=== PATIENT | female | born 1955 | race Caucasian/White ===

== ENCOUNTER 2022-08-16 13:01 | Emergency (ER) | payer MEDICARE, SELFPAY ==
[2022-08-16] VITALS (18 sets, daily range): BP systolic 142–168; BP diastolic 66–97; PULSE 52–61; RESP 18; TEMP 36.6–37.2; O2SAT 94–99; BMI 22.2
[2022-08-16 13:33] LABS: Add Manual Diff / Slide Review NO; Basophils Absolute Auto 100 /uL (0-100); Basophils Percent Auto 1.5 % (0-2); Eosinophils Absolute Auto 200 /uL (0-450); Eosinophils Percent Auto 2.4 % (2-4); Hematocrit 40.7 % (36-46); Hemoglobin 13.6 g/dL (12.0-16.0); Lymphocytes Absolute Auto 1700 /uL (1100-4500); Lymphocytes Percent Auto 26.8 % (25-40); Mean Corpuscular HGB Conc 33.3 % (30-36); Mean Corpuscular Hemoglobin 30.5 PG (26-34); Mean Corpuscular Volume 91.5 fL (80-100); Monocytes Absolute Auto 600 /uL (0-900); Monocytes Percent Auto 9.7 % (3-14); Neutrophils Absolute Auto 3800 /uL (1500-7000); Neutrophils Percent Auto 59.6 % (50-75); Platelet Count 303 X10^3/uL (150-400); Red Blood Cell Count 4.45 X10^6/uL (4.0-5.2); Red Cell Distribution Width 12.6 % (11.6-14.8); White Blood Cell Count 6.4 X10^3/uL (4.5-11.0)
[2022-08-16 13:46] LABS: Alanine Aminotransferase 37 IU/L (<35); Albumin 4.7 g/dL (3.5-5.0); Albumin Globulin Ratio 1.4 (1.0-2.8); Alkaline Phosphatase 71 U/L (38-126); Aspartate Aminotransferase 36 IU/L (14-36); BUN Creatinine Ratio 19.2 (6-22); Bilirubin Total 0.8 mg/dL (0.2-1.3); Blood Urea Nitrogen 10 mg/dL (7-17); Calcium 9.9 mg/dL (8.4-10.2); Carbon Dioxide 34 mmol/L (22-32); Chloride 98 mmol/L (98-107); Estimated Glomerular Filt Rate > 60 mL/min (>60); Globulin 3.4 g/dL (1.7-4.1); Glucose 105 mg/dL (80-110); HEMOLYSIS < 15 (0-50); Lipase 183 U/L (23-300); Sodium 136 mmol/L (137-145); Total Protein 8.1 g/dL (6.3-8.2)
--- NOTE | 2022-08-16 14:58 | ED.ABDPAIN ---
HPI - Abdominal Pain <Sophie Chamorro PA-C - Last Filed: 08/16/22 17:36> General Chief Complaint: Abdominal Pain Stated Complaint: Lower abd pain, being treated for UTI Time Seen by Provider: 08/16/22 14:35 Source: patient Mode of arrival: Ambulatory History of Present Illness HPI narrative: 67-year-old female with past medical history atrial fibrillation, hyperlipidemia presents to the ED with 1 week of abdominal pain. Patient states that her pain started in the suprapubic and lower abdomen last week, she called her PCP thinking she had a UTI, was prescribed a round of antibiotics. Patient states the antibiotics improved her symptoms, however as soon as she completed the course, her abdominal pain worsened. Patient was started on a 2nd course of antibiotics, this time cefdinir yesterday. Patient states that last night her symptoms worsened, her abdominal pain no spends her entire abdomen. Patient endorses some nausea, no vomiting. Patient denies fever, chills, chest pain, shortness of breath, dysuria, flank pain, lightheadedness, dizziness, syncope. Patient is on Eliquis for the AFib. Patient also takes atorvastatin for the hyperlipidemia. Patient had surgery for an ectopic in the past, no other abdominal surgeries. Patient's last bowel movement was this morning, she states she felt more constipated. Denies hematochezia, melena Related Data Home Medications Medication Instructions Recorded Confirmed apixaban 5 mg tablet (Eliquis) 5 mg PO BID 08/16/22 08/16/22 atorvastatin 80 mg tablet 80 mg PO QPM 08/16/22 08/16/22 cefdinir 300 mg capsule 300 mg PO BID 08/16/22 08/16/22 metoprolol succinate 25 mg 25 mg PO DAILY 08/16/22 08/16/22 tablet,extended release 24 hr Allergies Allergy/AdvReac Type Severity Reaction Status Date / Time chlorhexidine Allergy Rash Verified 08/16/22 13:49 codeine Allergy Rash Verified 08/16/22 13:49 sulfamethoxazole Allergy Rash Verified 08/16/22 13:49 [From Bactrim] trimethoprim [From Bactrim] Allergy Rash Verified 08/16/22 13:49 amoxicillin AdvReac Diarrhea Verified 08/16/22 15:30 aspirin AdvReac Gastrointestinal Verified 08/16/22 15:30 Upset clavulanic acid AdvReac Diarrhea Verified 08/16/22 15:30 [From Augmentin] diclofenac AdvReac Anxiety Verified 08/16/22 15:30 erythromycin base AdvReac Nausea Verified 08/16/22 15:30 Review of Systems <Sophie Chamorro PA-C - Last Filed: 08/16/22 17:36> Review of Systems ROS Unobtainable: All systems reviewed & are unremarkable except as noted in HPI and below Constitutional Constitutional: Denies chills, Denies fatigue, Denies fever(s), Denies frequent falls, Denies lethargy and Denies weakness Eyes Eyes: Denies change in vision, Denies eye discharge, Denies irritation and Denies loss of vision ENT Ears, Nose, Mouth, and Throat: Denies change in voice, Denies dizziness, Denies neck pain, Denies sore throat and Denies throat swelling Cardiovascular Cardiovascular: Denies chest pain, Denies irregular heart rhythm, Denies lightheadedness, Denies palpitations, Denies dyspnea, Denies dyspnea on exertion and Denies orthopnea Respiratory Respiratory: Denies cough, Denies dyspnea, Denies dyspnea on exertion and Denies wheezing Gastrointestinal Gastrointestinal: Reports abdominal pain, Denies change in bowel habits, Denies diarrhea, Reports nausea and Denies vomiting Genitourinary Genitourinary: Denies hematuria, Denies flank pain, Denies urinary incontinence and Denies urinary urgency Musculoskeletal Musculoskeletal: Denies back pain, Denies muscle weakness, Denies neck pain, Denies numbness and Denies tingling Integumentary/Breasts Skin/Breast: Denies pruritus, Denies erythema, Denies rash and Denies wounds Neurologic Neurologic: Denies behavioral changes, Denies confusion, Denies dizziness, Denies frequent falls, Denies loss of vision, Denies numbness, Denies tingling and Denies weakness Psychiatric Psychiatric: Denies anxiety, Denies behavioral changes, Denies confusion, Denies depression, Denies homicidal ideation and Denies suicidal ideation Endocrine Endocrine: Denies fatigue, Denies flushing and Denies palpitations Hematologic/Lymphatic Hematologic/Lymphatic: Denies easy bruising Allergic/Immunologic Allergic/Immunologic: Denies urticaria, Denies throat swelling and Denies wheezing Patient History <Sophie Chamorro PA-C - Last Filed: 08/16/22 17:36> Social History Smoking Status: Never smoker Smoking Status: Never smoker alcohol intake frequency: 0-2 drinks per day Substance Use Type: marijuana Exam <Sophie Chamorro PA-C - Last Filed: 08/16/22 17:36> Narrative Exam Narrative: Const General:?cooperative, healthy appearing and comfortable HENWV Head:?normal to inspection Ears:?hearing grossly normal bilaterally Nose:?external nose normal Face and sinus:?normal facial exam and sinuses nontender Mouth:?oral mucosae normal Throat:?posterior oropharynx normal Eyes General:?appearance normal, both eyes and all related structures Neck Neck:?normal visual inspection and no lymphadenopathy noted Resp Effort & Inspection:?normal respiratory effort Auscultation:?clear to auscultation bilaterally Cardio Rate:?regular rate Rhythm:?regular rhythm GI Abdomen is soft, nondistended, there is generalized tenderness to palpation. No CVA tenderness. Neuro General:?patient alert, patient awake and patient oriented x3 Initial Vital Signs Initial Vital Signs: Vital Signs Temperature 98.9 F 08/16/22 13:07 Pulse Rate 58 L 08/16/22 13:07 Respiratory Rate 18 08/16/22 13:07 Blood Pressure 167/74 H 08/16/22 13:07 Pulse Oximetry 98 08/16/22 13:07 Oxygen Delivery Method Room Air 08/16/22 13:07 <Garcia Altman DO - Last Filed: 08/16/22 18:00> Initial Vital Signs Initial Vital Signs: Vital Signs Temperature 98.9 F 08/16/22 13:07 Pulse Rate 58 L 08/16/22 13:07 Respiratory Rate 18 08/16/22 13:07 Blood Pressure 167/74 H 08/16/22 13:07 Pulse Oximetry 98 08/16/22 13:07 Oxygen Delivery Method Room Air 08/16/22 13:07 Course <Sophie Chamorro PA-C - Last Filed: 08/16/22 17:36> Orders Ordered: ED Orders 08/16/22 13:19 Complete Blood Count AUTO DIFF Stat Comprehensive Metabolic Panel Stat Lipase Stat 08/16/22 15:27 CT abdomen pelvis w con Stat Discontinued Medications Ketorolac Tromethamine (Ketorolac 30 Mg/Ml Vial) 15 mg IV NOW ONE Stop: 08/16/22 15:27 Last Admin: 08/16/22 15:40 Dose: 15 mg Documented By: RB Ondansetron HCl (Ondansetron 4 Mg Odt) 4 mg PO NOW PRN PRN Reason: Nausea And Vomiting Ondansetron HCl (Ondansetron 4 Mg/2 Ml Inj) 4 mg IV NOW PRN PRN Reason: Nausea And Vomiting Last Admin: 08/16/22 15:40 Dose: 4 mg Documented By: RB Vital Signs Vital signs: Vital Signs - 8 hr 08/16/22 13:07 08/16/22 14:23 08/16/22 14:25 Temperature 98.9 F Pulse Rate 58 L 61 Respiratory Rate 18 Blood Pressure 167/74 H 167/86 H Pulse Oximetry 98 96 Oxygen Delivery Method Room Air 08/16/22 14:25 08/16/22 14:30 08/16/22 14:30 Temperature Pulse Rate 57 L 56 L Respiratory Rate Blood Pressure 150/80 H Pulse Oximetry 95 94 Oxygen Delivery Method 08/16/22 14:37 08/16/22 14:37 08/16/22 14:45 Temperature Pulse Rate 58 L Respiratory Rate Blood Pressure 149/70 H 146/66 H Pulse Oximetry 99 Oxygen Delivery Method 08/16/22 14:45 08/16/22 15:00 08/16/22 15:00 Temperature Pulse Rate 52 L 53 L Respiratory Rate Blood Pressure 151/73 H Pulse Oximetry 98 99 Oxygen Delivery Method 08/16/22 15:15 08/16/22 15:15 08/16/22 15:30 Temperature Pulse Rate 55 L 59 L Respiratory Rate Blood Pressure 142/70 H Pulse Oximetry 98 98 Oxygen Delivery Method 08/16/22 16:00 08/16/22 17:27 08/16/22 16:30 Temperature 97.9 F Pulse Rate 58 L 54 L Respiratory Rate Blood Pressure Pulse Oximetry 99 98 Oxygen Delivery Method 08/16/22 16:42 08/16/22 16:42 08/16/22 16:45 Temperature Pulse Rate 54 L Respiratory Rate Blood Pressure 154/73 H 157/72 H Pulse Oximetry 99 Oxygen Delivery Method 08/16/22 16:45 08/16/22 17:00 08/16/22 17:00 Temperature Pulse Rate 54 L 55 L Respiratory Rate Blood Pressure 157/97 H Pulse Oximetry 99 97 Oxygen Delivery Method 08/16/22 17:15 08/16/22 17:15 08/16/22 17:24 Temperature Pulse Rate 55 L Respiratory Rate Blood Pressure 143/71 H Pulse Oximetry 98 94 Oxygen Delivery Method 08/16/22 17:25 Temperature Pulse Rate Respiratory Rate Blood Pressure 168/71 H Pulse Oximetry Oxygen Delivery Method <Garcia Altman DO - Last Filed: 08/16/22 18:00> Orders Ordered: ED Orders 08/16/22 13:19 Complete Blood Count AUTO DIFF Stat Comprehensive Metabolic Panel Stat Lipase Stat 08/16/22 15:27 CT abdomen pelvis w con Stat Discontinued Medications Ketorolac Tromethamine (Ketorolac 30 Mg/Ml Vial) 15 mg IV NOW ONE Stop: 08/16/22 15:27 Last Admin: 08/16/22 15:40 Dose: 15 mg Documented By: RUBIO Ondansetron HCl (Ondansetron 4 Mg Odt) 4 mg PO NOW PRN PRN Reason: Nausea And Vomiting Ondansetron HCl (Ondansetron 4 Mg/2 Ml Inj) 4 mg IV NOW PRN PRN Reason: Nausea And Vomiting Last Admin: 08/16/22 15:40 Dose: 4 mg Documented By: RUBIO Vital Signs Vital signs: Vital Signs - 8 hr 08/16/22 13:07 08/16/22 14:23 08/16/22 14:25 Temperature 98.9 F Pulse Rate 58 L 61 Respiratory Rate 18 Blood Pressure 167/74 H 167/86 H Pulse Oximetry 98 96 Oxygen Delivery Method Room Air 08/16/22 14:25 08/16/22 14:30 08/16/22 14:30 Temperature Pulse Rate 57 L 56 L Respiratory Rate Blood Pressure 150/80 H Pulse Oximetry 95 94 Oxygen Delivery Method 08/16/22 14:37 08/16/22 14:37 08/16/22 14:45 Temperature Pulse Rate 58 L Respiratory Rate Blood Pressure 149/70 H 146/66 H Pulse Oximetry 99 Oxygen Delivery Method 08/16/22 14:45 08/16/22 15:00 08/16/22 15:00 Temperature Pulse Rate 52 L 53 L Respiratory Rate Blood Pressure 151/73 H Pulse Oximetry 98 99 Oxygen Delivery Method 08/16/22 15:15 08/16/22 15:15 08/16/22 15:30 Temperature Pulse Rate 55 L 59 L Respiratory Rate Blood Pressure 142/70 H Pulse Oximetry 98 98 Oxygen Delivery Method 08/16/22 16:00 08/16/22 17:27 08/16/22 16:30 Temperature 97.9 F Pulse Rate 58 L 54 L Respiratory Rate Blood Pressure Pulse Oximetry 99 98 Oxygen Delivery Method 08/16/22 16:42 08/16/22 16:42 08/16/22 16:45 Temperature Pulse Rate 54 L Respiratory Rate Blood Pressure 154/73 H 157/72 H Pulse Oximetry 99 Oxygen Delivery Method 08/16/22 16:45 08/16/22 17:00 08/16/22 17:00 Temperature Pulse Rate 54 L 55 L Respiratory Rate Blood Pressure 157/97 H Pulse Oximetry 99 97 Oxygen Delivery Method 08/16/22 17:15 08/16/22 17:15 08/16/22 17:24 Temperature Pulse Rate 55 L Respiratory Rate Blood Pressure 143/71 H Pulse Oximetry 98 94 Oxygen Delivery Method 08/16/22 17:25 Temperature Pulse Rate Respiratory Rate Blood Pressure 168/71 H Pulse Oximetry Oxygen Delivery Method MDM - Abdominal Pain <Chasea BARBARA Chamorro - Last Filed: 08/16/22 17:36> Lab Data 08/16/22 13:19 08/16/22 13:19 Labs: Lab Results 08/16/22 08/16/22 Range/Units 13:19 13:19 WBC 6.4 (4.5-11.0) X10^3/uL RBC 4.45 (4.0-5.2) X10^6/uL Hgb 13.6 (12.0-16.0) g/dL Hct 40.7 (36-46) % MCV 91.5 (80-100) fL MCH 30.5 (26-34) PG MCHC 33.3 (30-36) % RDW 12.6 (11.6-14.8) % Plt Count 303 (150-400) X10^3/uL Neut % (Auto) 59.6 (50-75) % Lymph % (Auto) 26.8 (25-40) % [place] % (Auto) 9.7 (3-14) % Eos % (Auto) 2.4 (2-4) % Baso % (Auto) 1.5 (0-2) % Neut # (Auto) 3800 (8279-4678) /uL Lymph # (Auto) 1700 (0558-2279) /uL [place] # (Auto) 600 (0-900) /uL Eos # (Auto) 200 (0-450) /uL Baso # (Auto) 100 (0-100) /uL Sodium 136 L (137-145) mmol/L Potassium 4.0 (3.4-5.1) mmol/L Chloride 98 (98-107) mmol/L Carbon Dioxide 34 H (22-32) mmol/L BUN 10 (7-17) mg/dL Creatinine 0.52 (0.52-1.04) mg/dL Estimated GFR > 60 (>60) mL/min BUN/Creatinine Ratio 19.2 (6-22) Glucose 105 (80-110) mg/dL Calcium 9.9 (8.4-10.2) mg/dL Total Bilirubin 0.8 (0.2-1.3) mg/dL AST 36 (14-36) IU/L ALT 37 H (<35) IU/L Alkaline Phosphatase 71 (38-126) U/L Total Protein 8.1 (6.3-8.2) g/dL Albumin 4.7 (3.5-5.0) g/dL Globulin 3.4 (1.7-4.1) g/dL Albumin/Globulin Ratio 1.4 (1.0-2.8) Lipase 183 (23-300) U/L Point of care testing: Urine Dip Bedside Urine Glucose Negative Bedside Urine Bilirubin - Negative Bedside Urine Ketone - Negative Urine Specific [place] 1.010 Bedside Urine Occult Blood - Negative Bedside Urine pH 7 Bedside Urine Protein - Negative Bedside Urine Urobilinogen - Negative Bedside Urine Nitrite - Negative Bedside Urine Leukocytes - Negative Esterase MDM Narrative Medical decision making narrative: 67-year-old female with past medical history atrial fibrillation, hyperlipidemia presents to the ED with 1 week of abdominal pain. Concern for intra-abdominal pathology including UTI versus pyelonephritis versus diverticulitis versus appendicitis versus gallbladder disease versus other. Will obtain labs, lipase, UA, CT abdomen pelvis. Will reassess. Labs within normal limits. UA without UTI. CT shows infectious versus inflammatory terminal ileitis vs enteritis. The appendix was not visualized on CT, however no surrounding inflammatory changes noted either. Discussed findings with patient, patient has not consumed any under cooked meats or suspicious foods recently, or consumed unsanitary water. No recent travel. Patient does not have any fever, vomiting, diarrhea. Etiology is more likely inflammatory versus infectious. Recommend supportive care with Tylenol, heat, lidocaine patches. Advised against NSAID use. Patient agrees to follow-up with her GI specialist as soon as possible. Patient agrees to monitor her symptoms closely, ED return precautions were discussed, she will return to the ED if she has worsening symptoms. Medical records reviewed: Yes <Garcia Kavitapadmini, - Last Filed: 08/16/22 18:00> Lab Data Labs: Lab Results 08/16/22 08/16/22 Range/Units 13:19 13:19 WBC 6.4 (4.5-11.0) X10^3/uL RBC 4.45 (4.0-5.2) X10^6/uL Hgb 13.6 (12.0-16.0) g/dL Hct 40.7 (36-46) % MCV 91.5 (80-100) fL MCH 30.5 (26-34) PG MCHC 33.3 (30-36) % RDW 12.6 (11.6-14.8) % Plt Count 303 (150-400) X10^3/uL Neut % (Auto) 59.6 (50-75) % Lymph % (Auto) 26.8 (25-40) % [place] % (Auto) 9.7 (3-14) % Eos % (Auto) 2.4 (2-4) % Baso % (Auto) 1.5 (0-2) % Neut # (Auto) 3800 (5669-2684) /uL Lymph # (Auto) 1700 (9091-7995) /uL [place] # (Auto) 600 (0-900) /uL Eos # (Auto) 200 (0-450) /uL Baso # (Auto) 100 (0-100) /uL Sodium 136 L (137-145) mmol/L Potassium 4.0 (3.4-5.1) mmol/L Chloride 98 (98-107) mmol/L Carbon Dioxide 34 H (22-32) mmol/L BUN 10 (7-17) mg/dL Creatinine 0.52 (0.52-1.04) mg/dL Estimated GFR > 60 (>60) mL/min BUN/Creatinine Ratio 19.2 (6-22) Glucose 105 (80-110) mg/dL Calcium 9.9 (8.4-10.2) mg/dL Total Bilirubin 0.8 (0.2-1.3) mg/dL AST 36 (14-36) IU/L ALT 37 H (<35) IU/L Alkaline Phosphatase 71 (38-126) U/L Total Protein 8.1 (6.3-8.2) g/dL Albumin 4.7 (3.5-5.0) g/dL Globulin 3.4 (1.7-4.1) g/dL Albumin/Globulin Ratio 1.4 (1.0-2.8) Lipase 183 (23-300) U/L Point of care testing: Urine Dip Bedside Urine Glucose Negative Bedside Urine Bilirubin - Negative Bedside Urine Ketone - Negative Urine Specific [place] 1.010 Bedside Urine Occult Blood - Negative Bedside Urine pH 7 Bedside Urine Protein - Negative Bedside Urine Urobilinogen - Negative Bedside Urine Nitrite - Negative Bedside Urine Leukocytes - Negative Esterase Discharge Plan Departure Patient Disposition: Home Clinical Impression: Terminal ileitis Instructions: DI for Ileitis Activity Restrictions/Additional Instructions: You were evaluated in the ED today for abdominal pain. Your labs and urine were normal. The CT abdomen pelvis was unable to characterize your appendix, however it is also reassuring that he did not show any surrounding inflammation or other signs of an acute appendicitis. The CT shows the possibility of inflammatory or infectious terminal ileitis. History, this appears to be more likely a inflammatory terminal ileitis, which will need GI follow-up as soon as possible. In the meanwhile, please continue to monitor your symptoms and return to the ED if you have worsening abdominal pain, persistent vomiting, fever, chills. Prescriptions: No Action atorvastatin 80 mg Tablet 80 mg PO QPM metoprolol succinate 25 mg tablet extended release 24 hr 25 mg PO DAILY Patient Comments: TAKE 1 TABLET BY MOUTH DAILY Eliquis 5 mg Tablet 5 mg PO BID cefdinir 300 mg capsule 300 mg PO BID Patient Comments: TAKE 1 CAPSULE BY MOUTH TWICE DAILY FOR 5 DAYS Stand Alone Forms: Patient Portal/API <Garcia Altman, DO - Last Filed: 08/16/22 18:00> Cosign ED Attending Cosignature Attestation: Dr Altman Co-Sign Statement: I was available for consultation during this patient's emergency department visit. This chart is signed by myself for administrative purposes only. I did not have direct contact with this patient during this visit. They were seen independently by the APC.
--- NOTE | 2022-08-16 15:27 | DI.CT.S_ITS ---
PROCEDURE: CT ABDOMEN PELVIS W CON INDICATIONS: Generalized abdominal pain TECHNIQUE: After the administration of intravenous contrast, axial sections acquired from the lung bases to the pubic symphysis. Coronal and sagittal reformats were performed. For radiation dose reduction, the following was used: automated exposure control, adjustment of mA and/or kV according to patient size. COMPARISON: None. FINDINGS: Image quality: Excellent. Lung bases: Unremarkable. Heart: No significant findings. ABDOMEN: Liver: Unremarkable. Gallbladder: No stones. Biliary ducts: Nondilated. Pancreas: Normal. Spleen: Normal. Adrenal Glands: No nodules. Kidneys and Ureters: Symmetric enhancement. No nephrolithiasis or hydronephrosis. No hydroureter. Stomach and Bowel: Minor mucosal hyperemia and stricture at the terminal ileum but no significant proximal bowel obstruction. Pelvic bowel loops have some fluid but are otherwise normal. Solid stool throughout the colon. Mild diverticulosis. The appendix was not seen. Stomach is decompressed. Peritoneum: No abnormal intraperitoneal fluid. No free air. Ventral Wall: No hernias. Abdominal Nodes: There are few mildly prominent right lower quadrant mesenteric nodes surrounding the cecum. Small right iliac chain lymph node. No significant retroperitoneal or upper abdominal adenopathy. Vessels: Aorta and inferior vena cava are normal in size. PELVIS: Pelvic Organs: Uterus and ovaries have a normal CT appearance. Bladder: Decompressed. Pelvic Nodes: No enlarged lymph nodes. Miscellaneous: No hernias are seen. Bones: Focal left-sided disc and endplate degeneration at the L2-3 level. Mild diffuse L5-S1 disc and endplate degeneration. IMPRESSION: 1. Minor mucosal hyperemia and stricture of the terminal ileum without causing bowel obstruction. A few adjacent lymph nodes are present. This raises the possibility of inflammatory or infectious terminal ileitis. No significant surrounding inflammation or fluid. Differential diagnosis includes generalized enteritis given mild small bowel loop fluid. Dictated by: Maria Eugenia Smith M.D. on 08/16/2022 at 16:15 Approved by: Maria Eugenia Smith M.D. on 08/16/2022 at 16:21
[2022-08-16] MEDS: ONDANSETRON 4 MG/2 ML INJ IV (15:40)
[2022-08-16] MEDS: KETOROLAC 30 MG/ML VIAL 15 MG IV (15:40)
== END 2022-08-16 17:34 | disposition home or self-care (01) ==
PROVIDERS: Emergency Medicine; Emergency Provider Student in an Organized Health Care Education/Training Program
DX: K50.00 Crohn's disease of small intestine without complications (principal); R11.0 Nausea; Z79.01 Long term (current) use of anticoagulants; Z79.899 Other long term (current) drug therapy
CPT/HCPCS: 36415; 74177; 80053; 81003; 83690; 85025; 96374; 96375; 99284; J1885; J2405; Q9967

== ENCOUNTER → 2024-04-16 15:48 | Outpatient (CLI) | payer MEDICARE, SELFPAY ==
--- NOTE | 2024-04-16 15:52 | DI.MRI.S_ITS ---
PROCEDURE: MR ANKLE RT WO CON INDICATIONS: foot pain/ankle pain TECHNIQUE: Noncontrast sagittal T1 spin echo and T2 fast spin echo with fat saturation, axial proton density fast spin echo and T2 fast spin echo with fat saturation, coronal T1 spin echo and T2 fast spin echo with fat saturation through the ankle/hindfoot. COMPARISON: [facility], MR, MR FOOT RT WO CON, 04/16/2024, 16:46. [facility], CR, XR FOOT 3 VIEWS WEIGHT BEARING RIGHT, 01/22/2024, 9:38. [facility], CR, XR ANKLE 3 VIEWS WEIGHT BEARING RIGHT, 01/22/2024, 9:38. FINDINGS: Image quality: Excellent. Bones: The bone marrow signal is normal, although there is diffuse thinning of the osseous cortices. The anterior process of the calcaneus and lateral process of the talus are intact. No talar dome osteochondral defect is seen. Joints: There is no significant joint effusion. There is a small amount of fluid in the Gruberi bursa (6/10). Mild scattered midfoot osteoarthritis is present. The tibiotalar and subtalar joints are preserved. Sinus tarsi: The sinus tarsi signal is normal. Syndesmotic ligaments: The anterior and posterior inferior syndesmotic ligaments are normal. Lateral collateral ligament: There is mild thickening of the anterior talofibular ligament without a focal tear. The lateral collateral ligaments are otherwise normal. Deltoid ligament: The visualized components of the deltoid ligament, that being the posterior tibiotalar and tibiospring ligaments, are normal. Calcaneonavicular spring ligament: The superomedial component of the calcaneonavicular spring ligament is grossly intact. Tendons: The Achilles tendon is normal. There is a chronic-appearing split tear of the peroneus brevis with fluid in the peroneus tendon sheath (6/6) and distal reconstitution. The extensor, flexor and peroneal tendons are otherwise normal. The peroneal tendons are appropriately situated within the retromalleolar groove, and the superficial peroneal retinaculum is intact. Plantar aponeurosis: There is no abnormal thickening of, abnormal intrasubstance signal involving, or perifascial edema about the plantar aponeurosis. Plantar musculature: Superimposed on mild diffuse atrophy, there is near complete fatty replacement of the abductor digiti minimi and partial replacement of the abductor hallucis (8/14). Nerves: The visualized nerves are unremarkable. Other: There is mild edema in Kager's fat pad (6/14). Mild circumferential subcutaneous edema is present around the high ankle (4/11). There is minimal Achilles calcaneal and plantar calcaneal enthesopathy (5/12). IMPRESSION: 1. 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 2. Chronic sprain of the anterior talofibular ligament. 3. Chronic denervation changes involving the abductor digiti minimi and abductor hallucis. 4. Mild scattered midfoot osteoarthritis. 5. Diffuse thinning of the osseous cortices, which can be seen with osteopenia/osteoporosis. Dictated by: Ari Navarro M.D. on 04/17/2024 at 14:53 Approved by: Ari Navarro M.D. on 04/17/2024 at 15:08
--- NOTE | 2024-04-16 15:52 | DI.MRI.S_ITS ---
PROCEDURE: MR FOOT RT WO CON INDICATIONS: foot pain/ankle pain TECHNIQUE: Multiphasic, multisequence MRI of the forefoot was performed, without intravenous contrast administration. COMPARISON: [facility], CR, XR FOOT 3 VIEWS WEIGHT BEARING RIGHT, 01/22/2024, 9:38. FINDINGS: Image quality: Excellent. Bones: Marrow edema is present across the moieties of a bipartite medial hallux sesamoid (5/27; 6/26). There are thin linear fluid clefts at the site of minimally displaced, chronic 3rd and 4th metatarsal neck fractures (5/26). Otherwise, the marrow signal is within normal limits. There is no other acute fracture or dislocation. Joints: There is scattered midfoot osteoarthritis. There is minimal hallux valgus with mild 1st MTP osteoarthritis (6/24). Tendons: The visualized flexor and extensor tendons are within normal limits. Muscles: There is mild diffuse muscle atrophy. There is near complete fatty replacement of the abductor digiti minimi and partial fatty replacement of the abductor hallucis musculature. Ligaments: The Lisfranc ligament complex is intact. The visualized components of the short and long plantar ligaments are intact. Soft tissues: There is a 1.0 x 0.9 cm plantar ganglion cyst with the neck emanating from the 2/3 plantar TMT joint space (8/35). There is no perineural fibrosis at the intermetatarsal web spaces. IMPRESSION: 1. Marrow edema across the moieties of a bipartite medial hallux sesamoid, which could be secondary to micro motion between the moieties or minimally displaced acute fractures. 2. Chronic, minimally displaced 3rd and 4th metatarsal neck fractures. 3. 1 cm plantar ganglion cyst emanating from the 2nd-3rd plantar TMT joint spaces. Dictated by: Ari Navarro M.D. on 04/17/2024 at 15:08 Approved by: Ari Navarro M.D. on 04/17/2024 at 15:18
== END ==
LOC: MRI 15:49
DX: S92.334A Nondisplaced fracture of third metatarsal bone, right foot, initial encounter for closed fracture (principal); S92.344A Nondisplaced fracture of fourth metatarsal bone, right foot, initial encounter for closed fracture; S96.811A Strain of other specified muscles and tendons at ankle and foot level, right foot, initial encounter; S93.491A Sprain of other ligament of right ankle, initial encounter; M65.971 Unspecified synovitis and tenosynovitis, right ankle and foot; M19.071 Primary osteoarthritis, right ankle and foot; M67.471 Ganglion, right ankle and foot; M79.604 Pain in right leg; M25.471 Effusion, right ankle
CPT/HCPCS: 73718; 73721